=== PATIENT | male | born 1990 | race Caucasian/White ===

== ENCOUNTER 2018-11-16 18:32 | Emergency (ER) | payer SELFPAY ==
[~2018-11-16] VITALS: Ht 185.4 cm; Wt 79.4 kg
[2018-11-16] MEDS ORDERED: NKM (18:55)
[2018-11-16 19:02] VITALS: BP 109/70
--- NOTE | 2018-11-16 19:05 | Emergency Room Report ---
History of Present Illness General Chief Complaint: Laceration Source: Patient Present Illness HPI 28-year-old male patient presents the ER complaining of laceration on right hand ring finger status post 1 hour ago. Reports that he was closing his pocket knife when he cut his finger. Reports bleeding well controlled at time of triage. Reports pain. does not know tetanus vaccination status. Reports right hand dominant. Denies loss of sensation or tingling. Allergies: Coded Allergies: No Known Allergies (Unverified , 11/16/18) Patient History Past Medical History: see triage record Reviewed Nursing Documentation: PMH: Agreed; PSxH: Agreed Nursing Documentation-PMH Past Medical History: No Stated History Review of Systems All Other Systems: negative except mentioned in HPI Physical Exam Vital Signs Date Time Temp Pulse Resp B/P (MAP) Pulse Ox O2 Delivery O2 Flow Rate FiO2 11/16/18 18:53 99.3 77 14 105/68 97 Room Air Sp02 EP Interpretation: reviewed, normal General Appearance: well appearing, no apparent distress, alert, GCS 15, non- toxic Head: normocephalic, atraumatic Eyes: bilateral eye normal inspection, bilateral eye PERRL ENT: hearing grossly normal, normal pharynx, no angioedema, normal voice, uvula midline, moist mucus membranes Neck: full range of motion Respiratory: lungs clear, normal breath sounds, no rhonchi, no respiratory distress, no accessory muscle use, no wheezing, speaking full sentences Cardiovascular #1: regular rate, rhythm, no edema Cardiovascular #2: 2+ radial (R), 2+ radial (L) Musculoskeletal: back normal, digits/nails normal, gait/station normal, normal range of motion, non-tender, other - Full range of motion with flexion and extension of DIP PIP and MCP joints of the finger of right hand, neurovascularly intact, cap refill less than 2 seconds, sensation intact light touch Neurologic: alert, oriented x3, responsive, motor strength/tone normal, sensory intact Psychiatric: mood/affect normal Skin: laceration - 2 cm laceration on right hand ring finger of distal phalanx on palmar side, bleeding well controlled, no surrounding erythema or edema, superficial, linear Procedures Laceration/Wound Repair Laceration/Wound Repair : Consent: Verbal Wound Location: upper extremity Wound's Depth, Shape: superficial Wound Length (cm): 2 Wound Explored: contaminated Irrigated w/ Saline (ccs): 10 Betadine Prep?: Yes Anesthesia: 1% Lidocaine Volume Anesthetic (ccs): 3 Wound Debrided: extensive Wound Repaired With: sutures Suture Size/Type: 5:0 Number of Sutures: 4 Layer Closure?: No Sterile Dressing Applied?: Yes Splint Applied?: No Sling Applied?: No Patient Tolerated: Well Complications: None Medical Decision Making PA Attestation Dr. Mccormick is my supervising Physician whom patient management has been discussed with. Diagnostic Impression: Primary Impression: Laceration ER Course Pt presents to ED c/o laceration on distal phalanx of right hand ring finger on palmar side. DDX considered but are not limited to laceration, abrasion, contusion, cellulitis. Full range of motion with flexion and extension of DIP and PIP joint, no exposed tendons, low suspicion for tendon rupture. Wound irrigated and examined no noted foreign body, low suspicion for foreign body based on physical exam, does not require x-ray at this time. VITAL SIGNS are WNL, patient is afebrile ED INTERVENTIONS: Wound was cleaned and irrigated using copious normal saline. Digital block using 3ml Lidocaine 1%. Laceration repaired. See procedure note. 4 sutures placed. Wound cleaned and covered using sterile dressing and Bacitracin. Patient reports understanding and agreement to treatment plan. Keep wound clean and dry. Followup with PCP in 2-3 days for wound check and suture removal in 5-7 days. ER precautions given. DISCHARGE: Rx provided for Keflex Rx provided for Bacitracin Rx provided for Tylenol At this time pt is stable for d/c to home. Patient resting comfortably, in no acute distress, nontoxic appearing, talking without difficulty. Will provide with patient care instructions and any necessary prescriptions. Patient to take medication as instructed. Care plan and follow-up instructions provided. Work note provided to patient. Patient questions asked and answered. Patient instructed to follow-up with primary care provider for wound check and suture removal. ER precautions given. Patient instructed to return to ER immediately for any new or worsening of symptoms. - Please note that this Emergency Department Report was dictated using [employer] line feeder technology software, occasionally this can lead to erroneous entry secondary to interpretation by the dictation equipment. Last Vital Signs Date Time Temp Pulse Resp B/P (MAP) Pulse Ox O2 Delivery O2 Flow Rate FiO2 11/16/18 18:53 99.3 77 14 105/68 97 Room Air Status: improved Disposition: HOME, SELF-CARE Condition: Stable Scripts Acetaminophen* (TYLENOL EXTRA STRENGTH*) 500 Mg Tablet 500 MG ORAL Q8H PRN for Prn Headache/Temp > 101, #30 TAB 0 Refills Prov: Yonatan Bradley 11/16/18 Cephalexin* (KEFLEX*) 500 Mg Capsule 500 MG ORAL EVERY 12 HOURS, #14 CAP 0 Refills Prov: Yonatan Bradley 11/16/18 Bacitracin/Polymyxin B Sulfate (BACITRACIN-POLYMYXIN OINTMENT) 28.35 Gm Oint...g. 1 APPLIC TP BID, #28 GM Prov: Yonatan Bradley 11/16/18 Patient Instructions: Laceration Care, Adult Additional Instructions: Patient instructed to follow-up with primary care provider in 2-3 days for wound check Suture removal in 5 -7 days. Take medications as directed. Keep wound clean and dry. Patient questions asked and answered. ER precautions given, patient instructed to return to ER immediately for any new or worsening of symptoms. Yonatan Bradley Nov 16, 2018 19:05
[2018-11-16] MEDS: Tetanus/Diptheria/Pertussis Vaccine 0.5ml Syr IM ONE (19:26)
[2018-11-16] MEDS: Acetaminophen 500mg (ES) tab ORAL ONE (19:27)
[2018-11-16] MEDS: Bacitracin Oint UD TOPIC ONE (19:27)
[2018-11-16] MEDS: Lidocaine 1% Plain 30 ml INJ ONE (19:28)
[2018-11-16] MEDS ORDERED: TYLENOL EXTRA500 MG ORAL (21:01)
[2018-11-16] MEDS ORDERED: BACITRACIN-P28.35 GM TP (21:01)
[2018-11-16] MEDS ORDERED: CEPHALEXIN500 MG ORAL (21:01)
[2018-11-16 21:05] VITALS: BP 115/72
== END 2018-11-16 21:00 | disposition home or self-care (01) ==
LOC: EMR 19:09
DX: S61.214A Laceration without foreign body of right ring finger without damage to nail, initial encounter (principal); W26.0XXA Contact with knife, initial encounter; Y92.9 Unspecified place or not applicable; F17.200 Nicotine dependence, unspecified, uncomplicated; Z23 Encounter for immunization
CPT/HCPCS: 12001; 90471; 90715; 99283; J2001